=== PATIENT | male | born 1960 | race Caucasian/White ===

== ENCOUNTER 2021-06-01 10:02 | Outpatient (CLI) | payer BC | END 2021-06-01 10:03 | disposition home or self-care (01) | LOC: SCSRAD 10:02 | PROVIDERS: ATTEND Chiropractor | DX: M54.9 Dorsalgia, unspecified (principal); M46.04 Spinal enthesopathy, thoracic region; M47.814 Spondylosis without myelopathy or radiculopathy, thoracic region | CPT/HCPCS: 72072 ==